=== PATIENT | female | born 1975 | race Caucasian/White ===

== ENCOUNTER 2024-02-29 14:59 | Emergency (ER) | payer BC ==
[2024-02-29] MEDS ORDERED: ACETAMINOPHEN 325 MG TABLET (FP) ONE (15:35)
[2024-02-29 15:39] VITALS: BP 156/89; PULSE 69; RESP 16; TEMP 98.1; BMI 25.2
[2024-02-29] MEDS: ACETAMINOPHEN 1000 MG/100 ML BAG IVPB ONE (15:42)
[2024-02-29 16:29] LABS: HEMATOCRIT 40.3 % (32.4-45.2); HEMOGLOBIN 13.6 G/dL (10.7-15.3); MCH 28.7 pg (25.7-33.7); MCHC 33.8 g/dl (32.0-36.0); MEAN CELL VOLUME 84.8 fl (80-96); MEAN PLT VOLUME 8.7 fl (7.5-11.1); PLATELET COUNT 216.8 10^3/uL (134-434); RBC 4.75 10^6/uL (3.60-5.2); RDW 14.1 % (11.6-15.6); WHITE BLOOD COUNT 7.2 10^3/uL (4.0-10.8)
[2024-02-29 16:31] LABS: ALBUMIN 4.3 g/dl (3.4-5.0); BILIRUBIN,TOTAL 0.6 mg/dl (0.2-1); CALCIUM 9.7 mg/dl (8.5-10.1); CREATININE 0.9 mg/dl (0.6-1.3); POTASSIUM 3.8 mmol/L (3.5-5.1); TOT PROT 7.1 g/dl (6.4-8.2)
[2024-02-29 16:43] LABS: PLATELET ESTIMATE ADEQUATE
[2024-02-29 16:48] LABS: HCG,QUALITATIVE URINE Negative
== END 2024-02-29 20:28 | disposition home or self-care (01) ==
LOC: FER 14:59
PROC: 3E033NZ Introduction of Analgesics, Hypnotics, Sedatives into Peripheral Vein, Percutaneous Approach (ICD-10-PCS; principal; 2024-02-29)
DX: R07.89 Other chest pain (principal); M54.9 Dorsalgia, unspecified
CPT/HCPCS: 36415; 70450-TC; 71046-TC-FY; 71275-TC; 80053; 81003; 82550; 84484; 84703; 85027; 85379; 99285-25; J0131; Q9967